=== PATIENT | male | born 1970 | race Caucasian/White ===

== ENCOUNTER 2018-11-30 13:03 | Inpatient (IN) | payer OTHER ==
[~2018-11-30] VITALS: Ht 177.8 cm; Wt 105.7 kg
[~2018-11-30 13:03] MED LIST: CARISOPRODOL 3350 MG PO; IBUPROFEN 800800 M1 PO; ULTRAM 50MG TAB50 MG PO; ZESTRIL5 MG
[2018-11-30 13:38] VITALS: BP 179/124
[2018-11-30 14:01] LABS: BASOPHILS 0.9 % (0.0-2.0); EOSINOPHILS 1.3 % (0.0-3.0); HEMATOCRIT 38.1 % (42.0-52.0); HEMOGLOBIN 12.4 gm/dL (14.0-18.0); LYMPHOCYTES 12.4 % (24.0-44.0); MCH 30.3 pg (26.0-34.0); MCHC 32.5 g/dL (28.0-37.0); MCV 93.2 fL (80.0-100.0); MONOCYTES 8.8 % (1.0-8.0); PLATELET COUNT 321 thou/uL (150-400); POLYS 76.6 % (36.0-66.0); RBC 4.09 mil/uL (4.50-6.00); WBC 11.8 thou/uL (4.0-11.0)
[2018-11-30 14:03] LABS: CALCIUM 8.4 mg/dL (8.5-10.1); CREATININE 1.4 mg/dL (0.7-1.3)
[2018-11-30 14:09] LABS: POTASSIUM 2.9 mmol/L (3.5-5.1)
[2018-11-30 14:12] LABS: TROPONIN-I 0.13 ng/mL (<0.06)
[2018-11-30 15:01] VITALS: BP 184/137
[2018-11-30 16:10] VITALS: BP 179/134
--- NOTE | 2018-11-30 16:13 | 2DMMODE ---
[facility] [place] [address] 2 D/M-MODE ECHOCARDIOGRAM Name: TWYLAJUAN L Room #: 170-12 [facility] IN [facility]#: [id number] Admission: 11/30/18 Attend Phys: Josselyn Hallman Discharge: Date of : 74 Report #: [id number] THIS REPORT FOR: //name// APPROVED REPORT Study performed: 11/30/2018 14:59:27 EXAM: Comprehensive 2D, Doppler, and color-flow Echocardiogram Patient Location: ER Status: routine BSA: 2.15 HR: 117 bpm BP: 184/137 mmHg Rhythm: Sinus tachycardia Indications Short of air. CHF. HTN. 2D Dimensions RVDd: 47.25 mm IVSd: 14.00 (7-11mm) LVOT Diam: 23.45 (18-24mm) LVDd: 59.28 mm PWd: 15.49 (7-11mm) Ascending Ao: 42.02 (22-36mm) LVDs: 53.90 (25-40mm) Aortic Root: 43.23 mm Volumes Left Atrial Volume (Systole) Single Plane 4CH: 100.16 mL Single Plane 2CH: 104.86 mL LA ESV Index: 51.00 mL/m2 Aortic Valve AoV Peak Gustavo.: 0.93 m/s AO Peak Gr.: 3.44 mmHg LVOT Max P.47 mmHg LVOT Max V: 0.79 m/s LEON Vmax: 3.66 cm2 Mitral Valve MV Decel. Time: 230.91 ms MV E Max Gustavo.: 0.84 m/s Pulmonary Valve PV Peak Gustavo.: 0.43 m/s PV Peak Gr.: 0.74 mmHg [facility] [address] [place] [address] 2 D/M-MODE ECHOCARDIOGRAM Name: JUAN WAKEFIELD Room #: [address] [place] [address] [place] [facility]#: [id number] Admission: 11/30/18 Attend Phys: Josselyn Hallman Discharge: Date of : 74 Report #: [id number] Tricuspid Valve TR Peak Gustavo.: 3.21 m/s RAP Estimate: 15.00 mmHg TR Peak Gr.: 41.24 mmHg PA Pressure: 56.00 mmHg Left Ventricle Left ventricle is mildly dilated. Mild to moderate concentric left ventricular hypertrophy. Left ventricular systolic function is severely decreased. LVEF is 25%. This study is not technically sufficient to allow evaluation of the LV diastolic function. Right Ventricle Right ventricle is dilated. Right ventricle is mildly hypokinetic. Atria Left atrium is moderate to severely dilated. Right atrium is moderately dilated. Aortic Valve The aortic valve is normal in structure. Moderate aortic regurgitation. Mitral Valve The mitral valve is normal in structure. Severe mitral regurgitation. Tricuspid Valve The tricuspid valve is normal in structure. Trace to mild tricuspid regurgitation. Estimated PAP is 55mmHg. Pulmonic Valve The pulmonary valve is normal in structure. Mild pulmonic regurgitation. Great Vessels Aortic root is dilated at 4.3cm. Ascending aorta is dilated at 4.2cm. IVC is dilated and collapses <50% with inspiration. Pericardium Left and right pleural effusions. <Conclusion> Left ventricle is mildly dilated. Left ventricular systolic function is severely decreased. [facility] [address] [address] 2 D/M-MODE ECHOCARDIOGRAM Name: JUAN WAKEFIELD Room #: [address] IN [facility]#: [id number] Admission: 11/30/18 Attend Phys: Josselyn Hallman Discharge: Date of : 74 Report #: [id number] LVEF is 25%. Right ventricle is dilated. Right ventricle is mildly hypokinetic. Left atrium is moderate to severely dilated. Right atrium is moderately dilated. The aortic valve is normal in structure. Moderate aortic regurgitation. The mitral valve is normal in structure. Severe mitral regurgitation. The tricuspid valve is normal in structure. Trace to mild tricuspid regurgitation. Estimated PAP is 55mmHg. The pulmonary valve is normal in structure. Mild pulmonic regurgitation. Aortic root is dilated at 4.3cm. Ascending aorta is dilated at 4.2cm. Left and right pleural effusions. <ELECTRONICALLY SIGNED> By: Emmanuel Kelley MD 11/30/18 1613 [id number] Emmanuel Kelley MD /INF
[2018-11-30 19:07] VITALS: BP 154/142
[2018-11-30 20:50] VITALS: BP 175/136
[2018-12-01] VITALS (14 sets, daily range): BP systolic 120–184; BP diastolic 74–134
[2018-12-01 06:02] LABS: ALBUMIN 2.8 g/dL (3.4-5.0); CALCIUM 8.2 mg/dL (8.5-10.1); CREATININE 1.4 mg/dL (0.7-1.3); PHOSPHORUS 3.8 mg/dL (2.5-4.9); POTASSIUM 3.4 mmol/L (3.5-5.1); TROPONIN-I 0.16 ng/mL (<0.06)
--- NOTE | 2018-12-01 07:57 | EKG ---
[place] [address] [address] [place] [address] ELECTROCARDIOGRAM REPORT Name: JUAN WAKEFIELD Room #: 349-I ADM IN M.R.#: [id number] Admission: 11/30/18 Attend Phys: Josselyn Block Discharge: Date of : 74 Report #: [id number] THIS REPORT FOR: //name// [facility] ED Test Date: 2018-11-30 Test Time: 13:01:16 Pat Name: JUAN WAKEFIELD Department: Room: 349 Gender: M Restaurant Cashier: NAOMY : 1970 Requested By: Leah Ferrell Order Number: [id number] MD: Adelfo Deutsch Measurements Intervals [place] Rate: 116 P: 175 WV: 150 QRS: 38 QRSD: 88 T: QT: 343 QTc: 477 Interpretive Statements Sinus or ectopic atrial tachycardia Low voltage, extremity leads Abnormal R-wave progression, late transition Nonspecific ST and T wave abnormality Borderline prolonged QT interval No previous ECG available for comparison Electronically Signed On 12-01-2018 7:57:06 CDT by Adelfo Deutsch [email or web address] <ELECTRONICALLY SIGNED> By: Adelfo Deutsch MD, [facility] 12/01/18 0757 130 130 Adelfo Deutsch MD, FAC /EPI
[2018-12-01 08:52] LABS: CHOLESTEROL 179 mg/dL (<200); HDL CHOLESTEROL 34 mg/dL (>40); LDL CHOLESTEROL 130 mg/dL (<100); TC:HDL 5.3 Ratio (Not establshd); TRIGLYCERIDE 78 mg/dL (<150); VLDL 16 mg/dL (<40)
[2018-12-02] VITALS (15 sets, daily range): BP systolic 117–155; BP diastolic 66–106
[2018-12-02 00:08] LABS: GLYCOHEMOGLOBIN (HGB A1C) 5.8 % (4.8-5.6)
[2018-12-02 04:55] LABS: ABSOLUTE NEUTROPHILS 6.6 thou/uL (1.4-8.2); BASOPHILS 2.6 % (0.0-2.0); EOSINOPHILS 3.8 % (0.0-3.0); HEMATOCRIT 34.3 % (42.0-52.0); HEMOGLOBIN 11.2 gm/dL (14.0-18.0); LYMPHOCYTES 17.3 % (24.0-44.0); MCH 30.6 pg (26.0-34.0); MCHC 32.6 g/dL (28.0-37.0); MCV 93.7 fL (80.0-100.0); MONOCYTES 8.3 % (1.0-8.0); PLATELET COUNT 263 thou/uL (150-400); RBC 3.66 mil/uL (4.50-6.00); RDW 15.1 % (10.5-14.5); WBC 9.6 thou/uL (4.0-11.0)
[2018-12-02 05:11] LABS: ALBUMIN 2.4 g/dL (3.4-5.0); CALCIUM 7.9 mg/dL (8.5-10.1); CREATININE 1.3 mg/dL (0.7-1.3); PHOSPHORUS 3.3 mg/dL (2.5-4.9); POTASSIUM 3.4 mmol/L (3.5-5.1); TROPONIN-I 0.15 ng/mL (<0.06)
--- NOTE | 2018-12-02 17:00 | CATHLAB ---
[facility] [address] [place] [address] INVASIVE PROCEDURE REPORT Name: JUAN WAKEFIELD Room #: 349-I ADM IN [facility].#: [id number] Admission: 11/30/18 Attend Phys: Josselyn Hallman Discharge: Date of : 74 Report #: [id number] THIS REPORT FOR: //name// APPROVED REPORT Study performed: 12/02/2018 12:17:12 Patient Details Patient Status: In-Patient Room #: The patient is a 47 year-old male Event Personnel Sher England Director Of Flight Operations, Sandra Glover RN, Nereida Saha CVT, Leah Aparicio RTR Procedures Performed Art Access - R femoral artery* Vinicio Access - R femoral vein 64987 Initial Mod Sed Same Phys/QHP Gr5y 097974 91001 Mod Sed Same Phys/QHP Ea 326506 Right and Left Heart Cath w/or w/o Coronarie [id number] [facility] Hemostasis with Manual pressure Indication CHF Current Status: , Dyspnea, Cardiomyopathy Risk Factors Hypercholesterolemia, Hypertension, Tobacco History () Procedure Narrative The patient was brought urgently to the Cardiac Catheterization Laboratory and was prepped and draped in a sterile manner. The Right Groin^ was infiltrated with 1% Lidocaine subcutaneous anesthesia. A Right Heart Catheterization was performed with a 7 Fr. Rodney-Marissa catheter and pressure were recorded. A PINNACLE 4FR Sheath #[id number] sheath was inserted into the RFA^. Coronary angiography was performed using coronary diagnostic catheters. The right coronary system was accessed and visualized with a AR MOD catheter. The left coronary system was accessed and visualized with a JL 5 catheter. The left ventricle was accessed and visualized with a AR MOD catheter. Left ventricular/Aortic Valve gradient assessed via catheter pullback. Hemostasis was obtained with manual pressure following sheath removal without any complications. Intraoperative Conscious Sedation Sedation start time: 12:17 Case end Time: 13:10 [facility] [place] [address] INVASIVE PROCEDURE REPORT Name: JUAN WAKEFIELD Room #: 349-I [facility] IN [facility].#: [id number] Admission: 11/30/18 Attend Phys: Josselyn Hallman Discharge: Date of : 74 Report #: [id number] Fluoro Time: 13.70 minutes Dose: DAP 22522.00 cGycm2 3084 mGy Contrast Type and Amount: Omnipaque 115 ml Coronary Angiography The patient's coronary anatomy is left dominant. Diagnostic Cath Left Main This is a large caliber vessel, patent with no flow-limiting lesions. LAD This is a moderate size caliber vessel, traversing the anterior wall and wrapping around the apex. There is mild calcification in the proximal segment. There is a moderate stenosis in the proximal segment, 40%. There is a another moderate stenosis within the mid segment, 30-40%. Diagonal 1 This is a patent vessel, with no flow-limiting lesions. Diagonal 2 This is a patent vessel, with no flow-limiting lesions. Circumflex This is a moderate to large caliber vessel, dominant as it supplies the left PDA. This vessel is patent with no flow-limiting lesions. OM1 This is a moderate size caliber vessel, patent with no flow-limiting lesions. OM2 This is a patent vessel, with no flow-limiting lesions. L PDA This is a patent vessel, with no flow-limiting lesions. Right Coronary This is a small, nondominant vessel with mild disease. Nondominant vessel with mild disease. Left Ventriculography Left Ventriculography was not performed. Ejection Fraction was 25% based off patient's Echocardiogram. The LVEDP is approximately 35 mmHg and there is no gradient across the outflow tract. Hemodynamics The right atrial mean pressure is 16 mmHg. The aortic pressure is 138/98 mmHg with a mean of 117 mmHg. The left ventricular pressure is 136/21 mmHg with a mean of mmHg. The left ventricular end diastolic pressure is 38 mmHg. Conclusion 1. There is moderate disease in the LAD. 2. Left dominant system. 3. Severe, nonischemic cardiomyopathy. [facility] [address] [place] [address] INVASIVE PROCEDURE REPORT Name: JUAN WAKEFIELD Room #: 349-I [facility] IN M.R.#: [id number] Admission: 11/30/18 Attend Phys: Josselyn Hallman Discharge: Date of : 74 Report #: [id number] 4. Recommend aggressive risk factor management and guideline directed medical therapy for cardiomyopathy. <ELECTRONICALLY SIGNED> By: Sher England MD 12/02/181699 99 99 Sher England MD /INF
[2018-12-03 03:43] VITALS: BP 136/98
[2018-12-03 05:32] LABS: CALCIUM 8.1 mg/dL (8.5-10.1); CREATININE 1.3 mg/dL (0.7-1.3); POTASSIUM 3.4 mmol/L (3.5-5.1)
[2018-12-03 05:39] LABS: HEMATOCRIT 35.4 % (42.0-52.0); HEMOGLOBIN 11.4 gm/dL (14.0-18.0); MCH 30.2 pg (26.0-34.0); MCHC 32.1 g/dL (28.0-37.0); MCV 94.1 fL (80.0-100.0); RBC 3.76 mil/uL (4.50-6.00); WBC 8.8 thou/uL (4.0-11.0)
[2018-12-03 07:21] VITALS: BP 150/99
[2018-12-03 10:56] VITALS: BP 129/97
[2018-12-03 12:43] VITALS: BP 129/97
[2018-12-03] MEDS ORDERED: ATORVASTATIN CA80 MG PO (13:05)
[2018-12-03] MEDS ORDERED: LISINOPRIL40 MG PO (13:07)
[2018-12-03] MEDS ORDERED: ASPIR 8181 MG PO (13:07)
[2018-12-03] MEDS ORDERED: SPIRONOLACTONE25 M1 PO (13:07)
[2018-12-03] MEDS ORDERED: COREG6.25 MG PO (13:12)
== END 2018-12-03 16:02 | disposition home or self-care (01) | DRG 286 ==
LOC: ER 13:03 → 3W 14:48 → EROBS 14:48 → 3W 16:13
PROVIDERS: Emergency Medicine; Internal Medicine Cardiovascular Disease; Nurse Practitioner; ADMIT Hospitalist
PROC: 4A023N8 Measurement of Cardiac Sampling and Pressure, Bilateral, Percutaneous Approach (ICD-10-PCS; principal; 2018-12-02)
PROC: B2111ZZ Fluoroscopy of Multiple Coronary Arteries using Low Osmolar Contrast (ICD-10-PCS; principal; 2018-12-02)
DX: I11.0 Hypertensive heart disease with heart failure (principal); J81.0 Acute pulmonary edema; J96.01 Acute respiratory failure with hypoxia; I50.21 Acute systolic (congestive) heart failure; I16.1 Hypertensive emergency; E44.0 Moderate protein-calorie malnutrition; I42.9 Cardiomyopathy, unspecified; F12.90 Cannabis use, unspecified, uncomplicated; F17.210 Nicotine dependence, cigarettes, uncomplicated; E66.9 Obesity, unspecified; Z60.2 Problems related to living alone; E87.70 Fluid overload, unspecified; D64.9 Anemia, unspecified; E78.5 Hyperlipidemia, unspecified; Z68.33 Body mass index [BMI] 33.0-33.9, adult; Z71.6 Tobacco abuse counseling; Z79.82 Long term (current) use of aspirin; Z79.899 Other long term (current) drug therapy; Z28.21 Immunization not carried out because of patient refusal
CPT/HCPCS: 10879

== ENCOUNTER 2019-03-17 14:32 | Inpatient (IN) | payer OTHER ==
[~2019-03-17] VITALS: Ht 177.8 cm; Wt 109.8 kg
--- NOTE | ~2019-03-17 | EKG ---
[facility] [place] [address] ELECTROCARDIOGRAM REPORT Name: VAMSHI WAKEFIELDREY Jesse Room #: [facility]#: [id number] Admission: Attend Phys: Discharge: Date of : 74 Report #: [id number] THIS REPORT FOR: cc: NO FAMILY PHYSICIAN or PCP FAM - No family physician/PCP Abraham Rosario MD ~ THIS REPORT FOR: //name// [facility] ED Test Date: 2019-03-17 Test Time: 14:29:29 Pat Name: JUAN WAKEFIELD Department: Room: Gender: M X Ray Technologist: CHACHA : 1970 Requested By: Vikas Osorio Order Number: [id number] MD: Measurements Intervals [place] Rate: 110 P: 45 OR: 154 QRS: 85 QRSD: 90 T: 24 QT: 356 QTc: 482 Interpretive Statements Sinus tachycardia Probable left atrial enlargement Borderline repolarization abnormality Borderline prolonged QT interval Baseline wander in lead(s) II,V2,V6 Compared to ECG 11/30/2018 13:01:16 ST (T wave) deviation no longer present [email or web address] By: 1429 1429 Epiphany Epiphany, /EPI
[~2019-03-17 14:32] MED LIST changes: +ASPIR 8181 MG PO; +ATORVASTATIN CA80 MG PO; +COREG6.25 MG PO; +LISINOPRIL40 MG PO; +SPIRONOLACTONE25 M1 PO
[2019-03-17 14:33] VITALS: BP 203/135
[2019-03-17 17:40] LABS: ABSOLUTE NEUTROPHILS 7.7 thou/uL (1.4-8.2); BASOPHILS 0.6 % (0.0-2.0); EOSINOPHILS 2.7 % (0.0-3.0); HEMATOCRIT 39.5 % (42.0-52.0); HEMOGLOBIN 12.8 gm/dL (14.0-18.0); LYMPHOCYTES 16.5 % (24.0-44.0); MCHC 32.3 g/dL (28.0-37.0); MCV 93.1 fL (80.0-100.0); MONOCYTES 5.1 % (1.0-8.0); PLATELET COUNT 327 thou/uL (150-400); POLYS 75.1 % (36.0-66.0); RBC 4.25 mil/uL (4.50-6.00); RDW 16.3 % (10.5-14.5); WBC 10.2 thou/uL (4.0-11.0)
[2019-03-17 17:50] LABS: CALCIUM 8.8 mg/dL (8.5-10.1); CREATININE 1.4 mg/dL (0.7-1.3); POTASSIUM 4.2 mmol/L (3.5-5.1)
[2019-03-17 17:58] LABS: TROPONIN-I 0.07 ng/mL (<0.06)
[2019-03-17 22:46] VITALS: BP 170/87
[2019-03-18 01:23] VITALS: BP 134/86
[2019-03-18 03:20] VITALS: BP 141/93
[2019-03-18 05:12] LABS: CALCIUM 8.2 mg/dL (8.5-10.1); CREATININE 1.3 mg/dL (0.7-1.3); POTASSIUM 3.3 mmol/L (3.5-5.1)
[2019-03-18 07:50] VITALS: BP 140/90
--- NOTE | 2019-03-18 08:00 | NUR ---
ADMISSION NOTE:RECEIVED REPORT FROM [place] ED RN.PATIENT ARRIVED TO ROOM 210 AROUND 2245.PATIENT A/O X 4.UP INDEPENDENTLY.VOIDED LARGE AMOUNT OF URINE.PATIENT ON LASIX.BP WAS ELEVATED AND WAS ON CARDENE GTT IN THE ED.PATIENT'S BP WITHIN NORMAL AFTER TAKING CARVEDILOL PO.MONITOR SHOWS SR,ST.POC CONTINUED.
[2019-03-18 08:30] LABS: CALCIUM 8.5 mg/dL (8.5-10.1); CREATININE 1.5 mg/dL (0.7-1.3); MAGNESIUM 2.1 mg/dL (1.8-2.4)
--- NOTE | 2019-03-18 10:15 | 2DMMODE ---
[facility] [address] [place] [address] 2 D/M-MODE ECHOCARDIOGRAM Name: JUAN WAKEFIELD Room #: 210-P ADM IN ..#: [id number] Admission: 03/17/19 Attend Phys: Jay Moreno MD Discharge: Date of : 74 Report #: [id number] THIS REPORT FOR: cc: LETICIA - Radha family physician/PCP LETICIA - Radha family physician/PCP Sher England MD ~ THIS REPORT FOR: //name// APPROVED REPORT Study performed: 03/18/2019 08:22:40 EXAM: Comprehensive 2D, Doppler, and color-flow Echocardiogram Patient Location: Echo lab Room #: 210 BSA: 2.29 HR: 78 bpm BP: 141/93 mmHg Rhythm: NSR Other Information Study Quality: Good Indications Congestive Heart Failure Diabetes Dyspnea Cardiomyopathy Hypertension/HDD 2D Dimensions RVDd: 44.26 mm IVSd: 16.83 (7-11mm) LVOT Diam: 24.16 (18-24mm) LVDd: 56.03 mm PWd: 17.43 (7-11mm) Ascending Ao: 38.53 (22-36mm) LVDs: 52.05 (25-40mm) Aortic Root: 35.11 mm IVC: 17.00 mm Volumes Left Atrial Volume (Systole) Single Plane 4CH: 115.14 mL Single Plane 2CH: 113.12 mL LA ESV Index: 57.00 mL/m2 [facility] [address] [place] [address] 2 D/M-MODE ECHOCARDIOGRAM Name: JUAN WAKEFIELD Jesse Room #: 210-[facility] IN ..#: [id number] Admission: 03/17/19 Attend Phys: Jay Moreno MD Discharge: Date of : 74 Report #: [id number] Aortic Valve AoV Peak Gustavo.: 0.97 m/s AO Peak Gr.: 3.77 mmHg LVOT Max P.15 mmHg LVOT Max V: 0.73 m/s LEON Vmax: 3.46 cm2 AI Vmax: 4.24 m/s AI [place]: 1.69 m/s2 AI PHT: 730.06 ms Mitral Valve E/A Ratio: 2.1 MV Decel. Time: 136.11 ms MV E Max Gustavo.: 0.73 m/s MV A Gustavo.: 0.34 m/s MV PHT: 39.47 ms IVRT: 92.27 ms Pulmonary Valve PV Peak Gustavo.: 0.52 m/s PV Peak Gr.: 1.09 mmHg Pulmonary Vein P Vein S: 0.37 m/s P Vein A: 0.28 m/s P Vein D: 0.67 m/s P Vein A Dur.: 147.6 msec P Vein S/D Ratio: 0.55 Tricuspid Valve TR Peak Gustavo.: 2.81 m/s TR Peak Gr.: 31.66 mmHg PA Pressure: 37.00 mmHg Left Ventricle Left ventricle is borderline dilated. There is global hypokinesis of the left ventricle. Mild concentric left ventricular hypertrophy. Left ventricular systolic function is severely decreased. LVEF is 30%. Grade IV - fixed restrictive diastolic dysfunction. Right Ventricle Right ventricle is dilated. Right ventricular systolic function is borderline normal. Atria Left atrium is dilated. Right atrium is dilated. Aortic Valve The aortic valve is normal in structure. Mild aortic regurgitation. There is no aortic valvular stenosis. [facility] [place] [address] 2 D/M-MODE ECHOCARDIOGRAM Name: TWYLAJUAN L Room #: 210-P [facility] IN ..#: [id number] Admission: 03/17/19 Attend Phys: Jay Moreno MD Discharge: Date of : 74 Report #: [id number] Mitral Valve The mitral valve is normal in structure. Mild to moderate mitral regurgitation. No evidence of mitral valve stenosis. Tricuspid Valve The tricuspid valve is normal in structure. There is mild tricuspid regurgitation. Estimated PAP 37 mmHg. There is mild pulmonary hypertension. Pulmonic Valve The pulmonary valve is normal in structure. Trace pulmonic regurgitation. Great Vessels The aortic root is normal in size. The ascending aorta is borderline dilated. IVC is normal in size and collapses >50% with inspiration. Pericardium Trace pericardial effusion. <Conclusion> Left ventricle is borderline dilated. Mild concentric left ventricular hypertrophy. Left ventricular systolic function is severely decreased. LVEF is 30%. Right ventricle is dilated. Left atrium is dilated. Mild aortic regurgitation. Mild to moderate mitral regurgitation. There is mild tricuspid regurgitation. Estimated PAP 37 mmHg. <ELECTRONICALLY SIGNED> By: Sher England MD 03/18/19 1014 1014 1014 Sehr England MD /INF
[2019-03-18 11:00] VITALS: BP 126/92
[2019-03-18 16:00] VITALS: BP 134/98
[2019-03-18 20:15] VITALS: BP 139/103
--- NOTE | 2019-03-18 20:16 | NUR ---
ASSUMED CARE 0700, ALERT X4, DENIES PAIN, SOB WITH AMBULATIONS, PROGRESSING TOWARDS GOALS, CALLS FOR ASSISTANCE.
[2019-03-19] VITALS (7 sets, daily range): BP systolic 111–153; BP diastolic 78–110
--- NOTE | 2019-03-19 00:53 | NUR ---
ASSESSMENTS CHARTED, MEDS GIVEN CHARTED. PATIENT SITTING UP IN BED, WORKING TO BREATH AT START OF SHIFT. PATIENT HAS BILATERAL LOWER EXTREMITY EDEMA, ON LASIX THERAPY. ON FLUID RESTRICTION. PATIENT UP AT CANDACE IN ROOM. INFANT ROOM TEACHER IS WORKING WITH PATIENT TO MAKE SURE HE IS ABLE TO GET HIS HOME MEDS AND WORKING WITH HIS INSURANCE COMPANY. PATIENT DENIES PAIN. VSS.
[2019-03-19 08:56] LABS: CALCIUM 8.2 mg/dL (8.5-10.1); CREATININE 1.4 mg/dL (0.7-1.3); POTASSIUM 3.2 mmol/L (3.5-5.1)
--- NOTE | 2019-03-19 09:44 | NUR ---
FAXED FACE SHEET TO NATALIO AT [facility] TO HELP WITH MEDICAID MARIMAR. AND SEE IF PT QUALIFIES FOR SOC. SEC. DISABILITY RECEIVED CONFIRMATION. DP TO FOLLOW.
--- NOTE | 2019-03-19 15:09 | NUR ---
Merchandise Flow Team Leader visited with the pt at bedside. Pt known to cm from a previous admission in November 2018. 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 He has not followed up with [facility] or [facility] as he was feeling better and having car trouble. He states his understanding of importance of f/u care and was receptive to info on [facility], [facility], and Goodrx coupon. His brother [place] be [place] up [place]. He his hoping to go home tomorrow. Merchandise Flow Team Leader encouraged him to f/u with the [facility] walkin clinic next week to establish care for ongoing refills. Pt is up ad yodit and has been walking in the hallway. No other needs identified. He will likely use [facility] for his scripts. Coupon card provided.
--- NOTE | 2019-03-19 16:39 | NUR ---
ASSUMMED PT CARE AT APPROXIMATELY 0700. PT A&O X4. ASSESSMENT CHARTED. FALL PRECAUTIONS IN PLACE. PT DENIES HAVING CHEST PAIN. PT DENIES HAVING SOB. PT STATED HE HAD A HEADACHE. PT RECIEVED ANALGESICS. PT STATED HEADACHE WAS RELIEVED. ELECTROLYTE PROTOCOL FOLLOWED. PT COMFORTABLE IN BED. PT DENIES HAVING FURTHER CONCERNS. FLUID RESTRICTION FOLLOWED. PT AMBULATES STEADY/INDEPENDENTLY. PT AMBULATES STEADY/INDEPENDENTLY. VITAL SIGNS STABLE.
--- NOTE | 2019-03-19 23:37 | NUR ---
ASSESSMENTS CHARTED, MEDS GIVEN CHARTED. PATIENT STILL RECEIVING LASIX THERAPY, BILATERAL EXTREMITY EDEMA IS IMPROVING. PATIENT UP AT CANDACE, WALKING ON THE UNIT DURING SHIFT. DENIES ANY PAIN. VSS. ON FLUID RESTRICTIONS, PATIENT WELL UNDER DAILY LIMIT. PLAN OF CARE IS TO HOPEFULLY GO HOME IN MORNING OR NO LATER THAN FRIDAY MORNING SO HE CAN WATCH THE SUPER BOWL WITH FAMILY.
[2019-03-20 04:45] VITALS: BP 118/82
[2019-03-20 08:00] VITALS: BP 121/94
[2019-03-20] MEDS ORDERED: SPIRONOLACTONE25 M1 PO ×2 (08:33→08:42)
[2019-03-20] MEDS ORDERED: BENICAR40 MG PO (08:33)
[2019-03-20] MEDS ORDERED: ATORVASTATIN CA80 MG PO (08:33)
[2019-03-20] MEDS ORDERED: DEMADEX20 MG PO (08:33)
[2019-03-20] MEDS ORDERED: K-DUR10 MEQ PO (08:33)
[2019-03-20] MEDS ORDERED: COREG6.25 MG PO (08:33)
[2019-03-20] MEDS ORDERED: NORVASC10 MG PO (08:33)
[2019-03-20] MEDS ORDERED: LIPITOR40 MG PO (08:42)
[2019-03-20] MEDS ORDERED: CARVEDILOL12.5 MG PO (08:42)
[2019-03-20 12:13] VITALS: BP 121/85
--- NOTE | 2019-03-20 13:12 | NUR ---
ASSUMED CARE 0700, A/OX4, VS STABLE, DENIES SOB, DENIES CHEST PAIN, COMPLIANT WITH FLUID RESTRICTION. REVIEW DISCHARGE ORDERS INCLUDING MEDICATIONS, AND FOLLOW UP APPOINTMENTS. PT VOICED UNDERSTANDING. DC WITH SELF CARE.
== END 2019-03-20 14:15 | disposition home or self-care (01) | DRG 291 ==
LOC: ER 14:32 → EROBS 19:23 → 2N 22:41
PROVIDERS: Nurse Practitioner; Nurse Practitioner Family; ADMIT Hospitalist
DX: I11.0 Hypertensive heart disease with heart failure (principal); J96.00 Acute respiratory failure, unspecified whether with hypoxia or hypercapnia; E78.5 Hyperlipidemia, unspecified; I50.23 Acute on chronic systolic (congestive) heart failure; I16.0 Hypertensive urgency; F17.210 Nicotine dependence, cigarettes, uncomplicated; I42.8 Other cardiomyopathies; T50.2X6A Underdosing of carbonic-anhydrase inhibitors, benzothiadiazides and other diuretics, initial encounter; E11.9 Type 2 diabetes mellitus without complications; Z79.899 Other long term (current) drug therapy; Z79.82 Long term (current) use of aspirin; Z71.6 Tobacco abuse counseling; Y92.89 Other specified places as the place of occurrence of the external cause
CPT/HCPCS: 10081